=== PATIENT | female | born 1945 | race Caucasian/White ===

== ENCOUNTER → 2019-09-28 12:57 | Outpatient (CLI) | payer MEDICARE, SELFPAY ==
[2019-09-28 15:42] LABS: Free T3, Triiodothyronine Free 2.27 pg/mL (2.77-5.27); Free T4, Direct Thyroxine 1.23 ng/dL (0.78-2.19)
[2019-09-28 15:56] LABS: Thyroid Stimulating Hormone 0.94 uIU/mL (0.47-4.68)
== END ==
PROVIDERS: PCP Nurse Practitioner; Referring Provider Nurse Practitioner; Visit Provider Nurse Practitioner
DX: E03.9 Hypothyroidism, unspecified (principal); F32.9 Major depressive disorder, single episode, unspecified; F41.9 Anxiety disorder, unspecified; L30.9 Dermatitis, unspecified
CPT/HCPCS: 36415; 84439; 84443; 84481

== ENCOUNTER → 2020-05-23 16:11 | Outpatient (CLI) | payer MEDICARE, SELFPAY ==
--- NOTE | 2020-05-23 16:13 | DI.MG.S_ITS ---
BILATERAL DIGITAL SCREENING MAMMOGRAM 3D/2D WITH CAD: 05/23/2020 CLINICAL: Routine screening. Comparison is made to exams dated: 03/31/2018 mammogram, 03/25/2017 mammogram, and 03/20/2016 mammogram - [facility]. The tissue of both breasts is extremely dense, which lowers the sensitivity of mammography. Current study was also evaluated with a Computer Aided Detection (CAD) system. There are benign calcifications in the right breast. No significant masses, calcifications, or other findings are seen in either breast. There has been no significant interval change. IMPRESSION: BENIGN There is no mammographic evidence of malignancy. A 1 year screening mammogram is recommended. This exam was interpreted at Station ID: [id number]. NOTE: For mammograms, a report in lay terms will be sent to the patient. Approximately 15% of breast malignancies will not be visualized mammographically. In the management of a palpable breast mass, a negative mammogram must not discourage biopsy of a clinically suspicious lesion. Electronically Signed By: Avel canseco/milly:05/23/2020 16:45:07 letter sent: Normal Exam ACR BI-RADS Category 2: Benign Finding(s) 3342F
== END ==
PROVIDERS: PCP Nurse Practitioner; Referring Provider Nurse Practitioner; Visit Provider Nurse Practitioner
DX: Z12.31 Encounter for screening mammogram for malignant neoplasm of breast (principal)
CPT/HCPCS: 77063; 77067

== ENCOUNTER → 2020-06-19 09:43 | Outpatient (CLI) | payer MEDICARE, SELFPAY ==
[2020-06-19 11:20] LABS: Alanine Aminotransferase 23 IU/L (<35); Albumin 4.2 g/dL (3.5-5.0); Albumin Globulin Ratio 1.4 (1.0-2.8); Alkaline Phosphatase 51 U/L (38-126); Aspartate Aminotransferase 37 IU/L (14-36); BUN Creatinine Ratio 20.6 (6-22); Bilirubin Total 0.7 mg/dL (0.2-1.3); Blood Urea Nitrogen 13 mg/dL (7-17); Carbon Dioxide 33 mmol/L (22-32); Chloride 101 mmol/L (98-107); Cholesterol 176 mg/dL (140-199); Estimated Glomerular Filt Rate > 60.0 mL/min (>60); Glucose 83 mg/dL (80-110); HDL Cholesterol 60 mg/dL (40-60); HEMOLYSIS < 15 (0-50); LDL Cholesterol Calculated 91 mg/dL (<100); Potassium 3.8 mmol/L (3.4-5.1); Sodium 136 mmol/L (137-145); Total Protein 7.2 g/dL (6.3-8.2); Triglycerides 125 mg/dL (35-150)
[2020-06-19 11:57] LABS: Thyroid Stimulating Hormone 7.53 uIU/mL (0.47-4.68)
== END ==
PROVIDERS: PCP Nurse Practitioner; Referring Provider Nurse Practitioner; Visit Provider Nurse Practitioner
DX: I73.9 Peripheral vascular disease, unspecified (principal); Z13.6 Encounter for screening for cardiovascular disorders
CPT/HCPCS: 36415; 80053; 80061; 84443

== ENCOUNTER → 2020-09-22 07:43 | Outpatient (CLI) | payer MEDICARE, SELFPAY ==
[2020-09-22 09:29] LABS: Thyroid Stimulating Hormone 5.43 uIU/mL (0.47-4.68)
== END ==
PROVIDERS: PCP Nurse Practitioner; Referring Provider Nurse Practitioner; Visit Provider Nurse Practitioner
DX: E03.9 Hypothyroidism, unspecified (principal); Z79.899 Other long term (current) drug therapy
CPT/HCPCS: 36415; 84443

== ENCOUNTER → 2020-10-05 15:09 | Outpatient (CLI) | payer MEDICARE, SELFPAY ==
[2020-10-05] MEDS: COVID-19 VACC, Ad26(JANSSEN)/PF 0.5 ML IM (15:40)
== END ==
PROVIDERS: PCP Nurse Practitioner; Visit Provider Internal Medicine
DX: Z23 Encounter for immunization (principal)
CPT/HCPCS: 0031A; 91303

== ENCOUNTER → 2020-10-16 10:07 | Outpatient (CLI) | payer MEDICARE, SELFPAY ==
[2020-10-16 12:39] LABS: Thyroid Stimulating Hormone 4.61 uIU/mL (0.47-4.68)
== END ==
PROVIDERS: PCP Nurse Practitioner; Referring Provider Nurse Practitioner; Visit Provider Nurse Practitioner
DX: E03.9 Hypothyroidism, unspecified (principal); R79.89 Other specified abnormal findings of blood chemistry; Z79.899 Other long term (current) drug therapy
CPT/HCPCS: 36415; 84443

== ENCOUNTER → 2020-12-22 09:08 | Outpatient (CLI) | payer MEDICARE, SELFPAY ==
[2020-12-22 10:14] LABS: Thyroid Stimulating Hormone 0.313 uIU/mL (0.47-4.68)
== END ==
PROVIDERS: PCP Nurse Practitioner; Referring Provider Nurse Practitioner; Visit Provider Nurse Practitioner
DX: E03.9 Hypothyroidism, unspecified (principal); Z79.899 Other long term (current) drug therapy
CPT/HCPCS: 36415; 84443

== ENCOUNTER → 2021-03-27 11:32 | Outpatient (CLI) | payer MEDICARE, SELFPAY ==
[2021-03-27 12:03] LABS: COVID19 -Nasal RAPID Negative (Negative)
[2021-03-27 14:18] LABS: Thyroid Stimulating Hormone 3.26 uIU/mL (0.47-4.68)
== END ==
PROVIDERS: PCP Nurse Practitioner; Referring Provider Nurse Practitioner; Visit Provider Nurse Practitioner
DX: Z20.822 Contact with and (suspected) exposure to COVID-19 (principal); E03.9 Hypothyroidism, unspecified; J02.9 Acute pharyngitis, unspecified; G47.00 Insomnia, unspecified; Z79.899 Other long term (current) drug therapy
CPT/HCPCS: 36415; 84443; 87635

== ENCOUNTER → 2021-05-26 09:49 | Outpatient (CLI) | payer MEDICARE, SELFPAY ==
--- NOTE | 2021-05-26 09:51 | DI.MG.S_ITS ---
BILATERAL DIGITAL SCREENING MAMMOGRAM 3D/2D WITH CAD: 05/26/2021 CLINICAL: Routine screening. Comparison is made to exams dated: 05/23/2020 mammogram - [facility], 03/31/2018 mammogram, and 03/25/2017 mammogram - [facility]. The tissue of both breasts is extremely dense, which lowers the sensitivity of mammography. Current study was also evaluated with a Computer Aided Detection (CAD) system. There are benign calcifications in the right breast. No significant masses, calcifications, or other findings are seen in either breast. There has been no significant interval change. IMPRESSION: BENIGN There is no mammographic evidence of malignancy. A 1 year screening mammogram is recommended. This exam was interpreted at Station ID: [id number]. NOTE: For mammograms, a report in lay terms will be sent to the patient. Approximately 15% of breast malignancies will not be visualized mammographically. In the management of a palpable breast mass, a negative mammogram must not discourage biopsy of a clinically suspicious lesion. Electronically Signed By: Avel canseco/milly:05/28/2021 09:01:58 letter sent: Normal Exam ACR BI-RADS Category 2: Benign Finding(s) 3342F
== END ==
PROVIDERS: PCP Nurse Practitioner; Referring Provider Nurse Practitioner; Visit Provider Nurse Practitioner
DX: Z12.31 Encounter for screening mammogram for malignant neoplasm of breast (principal)
CPT/HCPCS: 77063; 77067

== ENCOUNTER → 2021-06-08 10:43 | Outpatient (CLI) | payer MEDICARE, SELFPAY ==
[2021-06-08] MEDS: COVID-19 VACC #3, MRNA(MOD) 50 MCG/0.25 ML VIAL IM (10:47)
== END ==
PROVIDERS: PCP Nurse Practitioner; Visit Provider Internal Medicine
DX: Z23 Encounter for immunization (principal)
CPT/HCPCS: 0013A; 91301

== ENCOUNTER → 2021-10-20 08:15 | Outpatient (CLI) | payer MEDICARE, SELFPAY ==
--- NOTE | 2021-10-20 08:23 | DI.RAD.S_ITS ---
PROCEDURE: XR LUMBAR SPINE 2-3V INDICATIONS: Right lower back pain TECHNIQUE: 3 views of the lumbar spine were acquired. COMPARISON: None. FINDINGS: Bones: Moderate levoconvex lumbar scoliosis is seen. Minimal retrolisthesis is seen at L1-L2 and L2-L3, with minimal anterolisthesis at L5-S1. 5 nonrib-bearing, lumbar type vertebral bodies are seen. No displaced fractures are seen. No suspicious lytic or blastic lesions are seen. There is moderate to severe disc space narrowing seen throughout the lumbar spine. Lower lumbar spine facet arthropathy is seen. Soft tissues: Overlying bowel gas pattern is normal. No suspicious soft tissue calcifications. IMPRESSION: Moderate levoconvex lumbar scoliosis with multiple levels of relatively prominent degenerative change. Dictated by: Bhupinder Coronel M.D. on 10/20/2021 at 9:09 Approved by: Bhupinder Coronel M.D. on 10/20/2021 at 9:11
[2021-10-20 08:50] LABS: Add Manual Diff / Slide Review NO; Basophils Absolute Auto 100 /uL (0-100); Basophils Percent Auto 1.1 % (0-2); Eosinophils Absolute Auto 100 /uL (0-450); Eosinophils Percent Auto 1.6 % (2-4); Hemoglobin 14.4 g/dL (12.0-16.0); Lymphocytes Absolute Auto 1700 /uL (1100-4500); Lymphocytes Percent Auto 20.8 % (25-40); Mean Corpuscular HGB Conc 33.6 % (30-36); Mean Corpuscular Hemoglobin 29.1 PG (26-34); Mean Corpuscular Volume 86.7 fL (80-100); Monocytes Absolute Auto 600 /uL (0-900); Monocytes Percent Auto 7.4 % (3-14); Neutrophils Absolute Auto 5600 /uL (1500-7000); Neutrophils Percent Auto 69.1 % (50-75); Platelet Count 236 X10^3/uL (150-400); Red Blood Cell Count 4.96 X10^6/uL (4.0-5.2); Red Cell Distribution Width 14.6 % (11.6-14.8); White Blood Cell Count 8.1 X10^3/uL (4.5-11.0)
[2021-10-20 09:05] LABS: Alanine Aminotransferase 25 IU/L (<35); Albumin 4.5 g/dL (3.5-5.0); Albumin Globulin Ratio 1.7 (1.0-2.8); Alkaline Phosphatase 50 U/L (38-126); Aspartate Aminotransferase 39 IU/L (14-36); BUN Creatinine Ratio 24.3 (6-22); Bilirubin Total 0.9 mg/dL (0.2-1.3); Blood Urea Nitrogen 18 mg/dL (7-17); Calcium 9.4 mg/dL (8.4-10.2); Carbon Dioxide 30 mmol/L (22-32); Chloride 101 mmol/L (98-107); Estimated Glomerular Filt Rate > 60.0 mL/min (>60); Globulin 2.7 g/dL (1.7-4.1); Glucose 96 mg/dL (80-110); HEMOLYSIS < 15 (0-50); Potassium 4.2 mmol/L (3.4-5.1); Sodium 137 mmol/L (137-145); Total Protein 7.2 g/dL (6.3-8.2)
[2021-10-20 09:33] LABS: Thyroid Stimulating Hormone 1.88 uIU/mL (0.47-4.68)
== END ==
PROVIDERS: PCP Nurse Practitioner; Referring Provider Nurse Practitioner; Visit Provider Nurse Practitioner
DX: F33.41 Major depressive disorder, recurrent, in partial remission (principal); F41.9 Anxiety disorder, unspecified; G47.00 Insomnia, unspecified; K21.9 Gastro-esophageal reflux disease without esophagitis; K29.70 Gastritis, unspecified, without bleeding; Z79.899 Other long term (current) drug therapy
CPT/HCPCS: 36415; 72100; 80053; 84443; 85025

== ENCOUNTER → 2022-01-29 07:43 | Outpatient (CLI) | payer MEDICARE, SELFPAY ==
--- NOTE | 2022-01-29 07:44 | DI.US.S_ITS ---
PROCEDURE: US ABDOMEN COMPLETE INDICATIONS: LEFT LOWER QUADRANT MASS TECHNIQUE: Real-time scanning was performed of the abdominal and retroperitoneal organs, with image documentation. COMPARISON: None. FINDINGS: Liver: Liver is normal in size and homogeneous in echotexture. Gallbladder: The gallbladder wall measures 1 mm in diameter. No stones, sludge, pericholecystic fluid, or sonographic Zamora sign. Biliary ducts: Intrahepatic bile ducts are non-dilated. Extrahepatic bile duct caliber measures 1.8 mm. Normal is 6-7 mm or less in diameter, or 10 mm or less post-cholecystectomy. Pancreas: Visualized portions of the pancreas are sonographically normal. Spleen: Spleen is normal in size and homogeneous in echotexture. Kidneys: Kidneys are normal in size and echotexture. Right kidney measures 10.7 cm long; left kidney measures 10.5 cm long. No hydronephrosis or nephrolithiasis. No solid masses. Aorta: Visualized aorta is normal in caliber at less than 3 cm. Iliacs: Proximal common iliac arteries are normal in caliber at less than 2.5 cm. IVC: Intrahepatic inferior vena cava is patent. Miscellaneous: No free abdominal fluid. The left lower quadrant was interrogated in the area of interest palpated by the patient. No sonographic abnormalities are visualized. IMPRESSION: 1. No cholelithiasis or findings to suggest choledocholithiasis or acute cholecystitis. 2. No sonographic abnormality in the region palpated by the patient in the left lower quadrant. Dictated by: Lottie Russ M.D. on 01/29/2022 at 9:46 Approved by: Lottie Russ M.D. on 01/29/2022 at 9:48
== END ==
PROVIDERS: PCP Nurse Practitioner; Referring Provider Student in an Organized Health Care Education/Training Program; Visit Provider Student in an Organized Health Care Education/Training Program
DX: R19.04 Left lower quadrant abdominal swelling, mass and lump (principal)
CPT/HCPCS: 76700

== ENCOUNTER → 2022-05-14 17:11 | Outpatient (CLI) | payer MEDICARE, SELFPAY ==
[2022-05-14 18:10] LABS: Add Manual Diff / Slide Review NO; Basophils Absolute Auto 0 /uL (0-100); Basophils Percent Auto 0.4 % (0-2); Eosinophils Absolute Auto 100 /uL (0-450); Eosinophils Percent Auto 1.3 % (2-4); Hematocrit 41.3 % (36-46); Hemoglobin 13.7 g/dL (12.0-16.0); Lymphocytes Absolute Auto 1200 /uL (1100-4500); Lymphocytes Percent Auto 13.3 % (25-40); Mean Corpuscular HGB Conc 33.2 % (30-36); Mean Corpuscular Hemoglobin 30.2 PG (26-34); Monocytes Absolute Auto 600 /uL (0-900); Monocytes Percent Auto 7.1 % (3-14); Neutrophils Absolute Auto 7100 /uL (1500-7000); Neutrophils Percent Auto 77.9 % (50-75); Platelet Count 233 X10^3/uL (150-400); Red Blood Cell Count 4.54 X10^6/uL (4.0-5.2); Red Cell Distribution Width 14.7 % (11.6-14.8); White Blood Cell Count 9.1 X10^3/uL (4.5-11.0)
[2022-05-14 18:27] LABS: Alanine Aminotransferase 24 IU/L (<35); Albumin 4.4 g/dL (3.5-5.0); Albumin Globulin Ratio 1.5 (1.0-2.8); Alkaline Phosphatase 66 U/L (38-126); Aspartate Aminotransferase 34 IU/L (14-36); BUN Creatinine Ratio 28.4 (6-22); Bilirubin Total 0.4 mg/dL (0.2-1.3); Blood Urea Nitrogen 19 mg/dL (7-17); Carbon Dioxide 28 mmol/L (22-32); Chloride 100 mmol/L (98-107); Estimated Glomerular Filt Rate > 60 mL/min (>60); Glucose 87 mg/dL (80-110); HEMOLYSIS 15 (0-50); Potassium 3.8 mmol/L (3.4-5.1); Sodium 137 mmol/L (137-145); Total Protein 7.4 g/dL (6.3-8.2)
[2022-05-14 19:29] LABS: Free T3, Triiodothyronine Free 2.88 pg/mL (2.77-5.27); Free T4, Direct Thyroxine 1.64 ng/dL (0.78-2.19)
[2022-05-14 19:42] LABS: Thyroid Stimulating Hormone 0.046 uIU/mL (0.47-4.68)
== END ==
PROVIDERS: PCP Nurse Practitioner; Referring Provider Nurse Practitioner; Visit Provider Nurse Practitioner
DX: R63.4 Abnormal weight loss (principal)
CPT/HCPCS: 36415; 80053; 84439; 84443; 84481; 85025

== ENCOUNTER → 2022-06-01 10:29 | Outpatient (CLI) | payer MEDICARE, SELFPAY ==
--- NOTE | 2022-06-01 10:31 | DI.MG.S_ITS ---
BILATERAL DIGITAL SCREENING MAMMOGRAM 3D/2D WITH CAD: 06/01/2022 CLINICAL: Routine screening. Comparison is made to exams dated: 05/26/2021 mammogram, 05/23/2020 mammogram - [facility], 03/31/2018 mammogram, and 03/25/2017 mammogram - [facility]. Both breasts are extremely dense, which lowers the sensitivity of mammography (category d />75% glandular tissue). Current study was also evaluated with a Computer Aided Detection (CAD) system. There are benign calcifications in the right breast. No significant masses, calcifications, or other findings are seen in either breast. There has been no significant interval change. IMPRESSION: BENIGN There is no mammographic evidence of malignancy. A 1 year screening mammogram is recommended. Based on the Tyrer Cuzick model (a risk assessment model) the patient's lifetime risk is 6.3% and her 10 year risk is 0.0%. According to the ACR, ACS, and NCCN guidelines, an annual breast MRI exam along with mammogram is recommended if the patient's lifetime risk is 20% or greater. This exam was interpreted at Station ID: [id number]. NOTE: For mammograms, a report in lay terms will be sent to the patient. Approximately 15% of breast malignancies will not be visualized mammographically. In the management of a palpable breast mass, a negative mammogram must not discourage biopsy of a clinically suspicious lesion. Electronically Signed By: Spike pierre/milly:06/03/2022 11:57:25 letter sent: Normal Exam ACR BI-RADS Category 2: Benign Finding(s) 3342F
== END ==
PROVIDERS: PCP Nurse Practitioner; Referring Provider Nurse Practitioner; Visit Provider Nurse Practitioner
DX: Z12.31 Encounter for screening mammogram for malignant neoplasm of breast (principal)
CPT/HCPCS: 77063; 77067

== ENCOUNTER → 2022-09-24 09:54 | Outpatient (CLI) | payer MEDICARE, SELFPAY | PROVIDERS: PCP Nurse Practitioner; Referring Provider Nurse Practitioner; Visit Provider Nurse Practitioner | DX: E03.9 Hypothyroidism, unspecified (principal) | CPT/HCPCS: 36415; 84443 ==

== ENCOUNTER → 2023-01-06 11:44 | Outpatient (CLI) | payer MEDICARE, SELFPAY ==
[2023-01-06 13:24] LABS: Alanine Aminotransferase 25 IU/L (<35); Albumin 4.1 g/dL (3.5-5.0); Albumin Globulin Ratio 1.6 (1.0-2.8); Alkaline Phosphatase 54 U/L (38-126); Aspartate Aminotransferase 27 IU/L (14-36); BUN Creatinine Ratio 25.4 (6-22); Bilirubin Total 0.2 mg/dL (0.2-1.3); Blood Urea Nitrogen 16 mg/dL (7-17); Calcium 9.1 mg/dL (8.4-10.2); Carbon Dioxide 30 mmol/L (22-32); Chloride 101 mmol/L (98-107); Estimated Glomerular Filt Rate > 60 mL/min (>60); Globulin 2.5 g/dL (1.7-4.1); Glucose 88 mg/dL (80-110); HEMOLYSIS < 15 (0-50); Potassium 4.1 mmol/L (3.4-5.1); Sodium 136 mmol/L (137-145); Total Protein 6.6 g/dL (6.3-8.2)
[2023-01-06 13:50] LABS: Thyroid Stimulating Hormone 3.47 uIU/mL (0.47-4.68)
== END ==
PROVIDERS: PCP Nurse Practitioner; Referring Provider Nurse Practitioner; Visit Provider Nurse Practitioner
DX: E03.9 Hypothyroidism, unspecified (principal); R79.89 Other specified abnormal findings of blood chemistry; Z86.19 Personal history of other infectious and parasitic diseases
CPT/HCPCS: 36415; 80053; 84443

== ENCOUNTER 2023-04-16 11:21 | Emergency (ER) | payer MEDICARE, SELFPAY ==
[2023-04-16 11:25] VITALS: BP 125/95; PULSE 76; RESP 16; TEMP 36.6; O2SAT 97
--- NOTE | 2023-04-16 11:34 | DI.RAD.S_ITS ---
PROCEDURE: XR HIP W PEL IF DONE LT 2V INDICATIONS: fall 10 days ago, still having pain TECHNIQUE: AP pelvis with lateral view(s) of the left hip(s). COMPARISON: None. FINDINGS: Bones: There are minimally displaced superior ramal fracture and nondisplaced inferior pubic ramal fracture. The left hip appears intact. 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 No suspicious bony lesions. Soft tissues: The visualized bowel gas pattern is normal. No suspicious soft tissue calcifications. IMPRESSION: Left superior and inferior pubic ramal fractures. Dictated by: Carla Narvaez M.D. on 04/16/2023 at 11:59 Approved by: Carla Narvaez M.D. on 04/16/2023 at 12:01
--- NOTE | 2023-04-16 12:11 | ED.LOWEXIN ---
HPI - Extremity Injury (Lower) General Chief Complaint: Extremity Injury, Lower Stated Complaint: fell T-10 LT side and back hurting Time Seen by Provider: 04/16/23 12:11 Source: patient Mode of arrival: Ambulatory History of Present Illness HPI Narrative: 78-year-old female who is here for evaluation of left-sided hip and lower back and pain radiating down her left leg. This occurred after she fell approximately 10 days ago. Because her pain has continued she came into the emergency department. She has been using a walker and also a cane which she normally does not do. She reports no other injuries from the event. Related Data Home Medications Medication Instructions Recorded Confirmed ibuprofen 200 mg tablet 200 mg PO Q6H PRN 09/28/19 12/30/22 cholecalciferol (vitamin D3) 50 50 mcg PO BID 07/04/20 12/30/22 mcg (2,000 unit) capsule (Vitamin D3) terbinafine HCl 250 mg tablet 250 mg PO DAILY 04/09/23 04/09/23 Previous Rx's Medication Instructions Recorded alendronate 70 mg tablet 70 mg PO QWEEK #12 tabs 05/14/22 omeprazole 20 mg capsule,delayed See Rx Instructions .Route 07/24/22 release .COMPLEX #90 caps levothyroxine 100 mcg tablet See Rx Instructions .Route 11/25/22 .COMPLEX #90 tabs clobetasol 0.05 % topical ointment 1 applic topical BID PRN 04/09/23 itching/rash 1 week #30 grams venlafaxine 75 mg capsule,extended 75 mg PO BEDTIME #30 caps 04/09/23 release 24 hr Allergies Allergy/AdvReac Type Severity Reaction Status Date / Time cephalexin [From Keflex] Allergy Mild rash Verified 04/09/23 09:32 Review of Systems Constitutional Constitutional: Reports system reviewed and no additional complaints, except as documented Musculoskeletal Musculoskeletal: Reports system reviewed and no additional complaints, except as documented Neurologic Neurologic: Reports system reviewed and no additional complaints, except as documented Patient History Medical History ADHD Arthritis Carpal tunnel syndrome Chicken pox Constipation Eczema Environmental allergies Fibroids Gastroesophageal reflux disease History of alendronate therapy Hypothyroidism (~1999) Insomnia Measles Mumps Onychomycosis Osteoporosis Peripheral vascular disease Surgical History History of cataract removal with insertion of prosthetic lens (~2018) History of right breast biopsy Family History Father Cancer Mother History of heart disease Social History Smoking Status: Former smoker Smoking Status: Former smoker alcohol intake frequency: a few times a week Substance Use Type: marijuana Exam Initial Vital Signs Initial Vital Signs: Vital Signs Temperature 98 F 04/16/23 11:25 Pulse Rate 76 04/16/23 11:25 Respiratory Rate 16 04/16/23 11:25 Blood Pressure 125/95 H 04/16/23 11:25 Pulse Oximetry 97 04/16/23 11:25 Oxygen Delivery Method Room Air 04/16/23 11:25 HENMT Head: normal to inspection and normocephalic Neuro General: patient alert and patient awake Extrem Other: No gross deformities. Pain with walking. Discomfort to the lateral aspect of the upper hip Course Orders Ordered: ED Orders 04/16/23 11:34 XR hip w pel if done LT 2V Stat Vital Signs Vital signs: Vital Signs - 8 hr 04/16/23 11:25 Temperature 98 F Pulse Rate 76 Respiratory Rate 16 Blood Pressure 125/95 H Pulse Oximetry 97 Oxygen Delivery Method Room Air [facility] - Extremity Injury (Lower) Imaging Data Extremity x-ray #1: Radiologist's Impression: PROCEDURE:? XR HIP W PEL IF DONE LT 2V ? INDICATIONS:? fall 10 days ago, still having pain ? TECHNIQUE:? AP pelvis with lateral view(s) of the left hip(s).? ? COMPARISON:? None. ? FINDINGS:? ? Bones:? There are minimally displaced superior ramal fracture and nondisplaced inferior pubic ramal fracture.? The left hip appears intact.? 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 No suspicious bony lesions.? ? Soft tissues:? The visualized bowel gas pattern is normal.? No suspicious soft tissue calcifications.? ? ? IMPRESSION:? Left superior and inferior pubic ramal fractures. [facility] Narrative Medical decision making narrative: This was a mechanical fall. X-ray do show a left superior and inferior pubic rami fracture. The event occurred approximately 10 days ago. Other injuries from the event. She is ambulatory with a walker and a cane. Will discharge patient home with return precautions. She expressed understanding and agreement. Discharge Plan Departure Patient Disposition: Home Clinical Impression: Fracture of superior ramus of left pubis, Fracture of left inferior pubic ramus Activity Restrictions/Additional Instructions: You can use the walker and the cane as needed. You can continue to take Tylenol and ibuprofen as needed as well. You can walk on your left leg as tolerated. Return to the emergency department for new symptoms. Prescriptions: No Action omeprazole 20 mg capsule,delayed release(DR/EC) See Rx Instructions .ROUTE .COMPLEX Qty: 90 3RF Dose Instruction: TAKE 1 CAPSULE BY MOUTH DAILY FOR GERD Rx Instructions: TAKE 1 CAPSULE BY MOUTH DAILY FOR GERD levothyroxine 100 mcg tablet See Rx Instructions .ROUTE .COMPLEX Qty: 90 3RF Dose Instruction: TAKE 1 TABLET BY MOUTH DAILY LABS DUE PRIOR TO NEXT REFILL Rx Instructions: TAKE 1 TABLET BY MOUTH DAILY LABS DUE PRIOR TO NEXT REFILL cholecalciferol (vitamin D3) [Vitamin D3] 50 mcg (2,000 unit) capsule 50 mcg PO BID Rx Instructions: Take twice daily with Calcium 600mg for bone heatlh alendronate 70 mg tablet 70 mg PO QWEEK Qty: 12 3RF Rx Instructions: Take 1 tab weekly, on an empty stomach, walk x30 mins after taking ibuprofen 200 mg tablet 200 mg PO Q6H PRN venlafaxine 75 mg capsule,extended release 24hr 75 mg PO BEDTIME Qty: 30 0RF clobetasol 0.05 % ointment 1 applic TOP BID PRN (Reason: itching/rash) 7 Days Qty: 30 3RF Rx Instructions: Apply twice daily to affected areas as needed terbinafine HCl 250 mg tablet 250 mg PO DAILY Referrals: Mercedes Castaneda ARNP [Primary Care Provider] - Stand Alone Forms: Patient Portal/API
== END 2023-04-16 12:24 | disposition home or self-care (01) ==
PROVIDERS: Emergency Provider Emergency Medicine; PCP Nurse Practitioner
DX: S32.512A Fracture of superior rim of left pubis, initial encounter for closed fracture (principal); S32.592A Other specified fracture of left pubis, initial encounter for closed fracture; W19.XXXA Unspecified fall, initial encounter
CPT/HCPCS: 73502; 99283

== ENCOUNTER 2023-04-18 14:02 | Emergency (ER) | payer MEDICARE, SELFPAY ==
[2023-04-18 14:19] VITALS: BP 115/62; PULSE 86; RESP 18; TEMP 36.4; O2SAT 98; BMI 16.8
--- NOTE | 2023-04-18 14:25 | DI.RAD.S_ITS ---
PROCEDURE: XR ANKLE LT MIN 3V INDICATIONS: Recent fall, ambulatory TECHNIQUE: 3 views of the ankle were acquired. COMPARISON: None. FINDINGS: Bones: No fractures or dislocations. Ankle mortise is normally aligned. No suspicious bony lesions. Soft tissues: No tibiotalar joint effusion. Achilles tendon appears normal. IMPRESSION: No evidence acute bony abnormality. If clinical suspicion and/or symptoms persist, further assessment with repeat plain films, or advanced imaging (e.g., CT, MRI, or bone scan) may be helpful for further assessment. Dictated by: Tim Guerrero M.D. on 04/18/2023 at 16:03 Approved by: Tim Guerrero M.D. on 04/18/2023 at 16:03
--- NOTE | 2023-04-18 15:33 | ED_ITS ---
HPI - Recheck/Abnormal Lab/Rx <Sue Guajardo PA-C - Last Filed: 04/18/23 18:46> General Chief Complaint: Recheck/Abnormal Lab/Rx Stated Complaint: fell/both ankles inj Time Seen by Provider: 04/18/23 15:24 Source: patient Mode of arrival: Ambulatory History of Present Illness HPI narrative: Patient is a 78-year-old female with chronic conditions of ADHD, osteoarthritis, GERD, peripheral vascular disease presenting after fall 12 days ago for evaluation of left ankle discomfort for 10-12 days, lower back and right buttocks pain for the last day. She was seen in the emergency department 2 days ago and diagnosed with left-sided pelvic rami fractures. She states that her lower back pain has occurred after several days of increased sitting. She denies any back pain or buttock pain right after the incident. She notes that last night she had deep right buttocks pain which occurred but resolved on its own. She denies any weakness or radiation of pain down her right leg. She also notes some lower back discomfort which seems to worsen with sitting. She wants to make sure that her left ankle is okay as she is noticed that this has been somewhat tender on the lower lateral side since her fall 12 days ago. She received x-rays at her visit in the emergency department 2 days ago. She reports that she is been using a walker and/or a cane since the incident. Her she says that she is having some difficulty walking and sitting due to pain. She also notes pain when lying down which radiates into her left groin. She says that she did not hit her head but she did hit her left elbow and her neck. She states the fall occurred when she was walking carrying a box up 3 flight of stairs. She states she caught her left foot and fell. She reports that she came in for recheck today because she noticed an incident of right buttock pain yesterday which resolved on its own and she wanted to have her left ankle checked out as well since it has been bothering her. She states she is not in pain at this time. She also noted some lower back pain which is also not present at this time. She denies any numbness in her lower leg nor any weakness but she does have continued pain in her left hip. She does report some incontinence of urine and stool. She states that this is because she can not make it to the bathroom quickly enough, not because she can not feel it was unaware that it was happening. She reports that after sitting for time in the emergency department, she feels her lower back and buttocks pain. She denies any numbness or weakness of either leg. Related Data Home Medications Medication Instructions Recorded Confirmed ibuprofen 200 mg tablet 200 mg PO Q6H PRN 09/28/19 12/30/22 cholecalciferol (vitamin D3) 50 50 mcg PO BID 07/04/20 12/30/22 mcg (2,000 unit) capsule (Vitamin D3) terbinafine HCl 250 mg tablet 250 mg PO DAILY 04/09/23 04/09/23 Previous Rx's Medication Instructions Recorded alendronate 70 mg tablet 70 mg PO QWEEK #12 tabs 05/14/22 omeprazole 20 mg capsule,delayed See Rx Instructions .Route 07/24/22 release .COMPLEX #90 caps levothyroxine 100 mcg tablet See Rx Instructions .Route 11/25/22 .COMPLEX #90 tabs clobetasol 0.05 % topical ointment 1 applic topical BID PRN 04/09/23 itching/rash 1 week #30 grams venlafaxine 75 mg capsule,extended 75 mg PO BEDTIME #30 caps 04/09/23 release 24 hr Allergies Allergy/AdvReac Type Severity Reaction Status Date / Time cephalexin [From Keflex] Allergy Mild rash Verified 04/18/23 14:19 Review of Systems <Sue Guajardo PA-C - Last Filed: 04/18/23 18:46> Review of Systems Narrative: See HPI Patient History <Sue Guajardo PA-C - Last Filed: 04/18/23 18:46> Medical History ADHD Arthritis Carpal tunnel syndrome Chicken pox Constipation Eczema Environmental allergies Fibroids Gastroesophageal reflux disease History of alendronate therapy Hypothyroidism (~1999) Insomnia Measles Mumps Onychomycosis Osteoporosis Peripheral vascular disease Surgical History History of cataract removal with insertion of prosthetic lens (~2017) History of right breast biopsy Family History Father Cancer Mother History of heart disease Social History Smoking Status: Former smoker Smoking Status: Former smoker alcohol intake frequency: a few times a week Substance Use Type: marijuana Exam <Sue Guajardo PA-C - Last Filed: 04/18/23 18:46> Initial Vital Signs Initial Vital Signs: Vital Signs Temperature 97.6 F 04/18/23 14:19 Pulse Rate 86 04/18/23 14:19 Respiratory Rate 18 04/18/23 14:19 Blood Pressure 115/62 04/18/23 14:19 Pulse Oximetry 98 04/18/23 14:19 Oxygen Delivery Method Room Air 04/18/23 14:19 GENERAL: 78 year old patient appears stated age. Well-developed patient, in no acute distress. HEAD: Atraumatic. Normocephalic. EYES: Pupils equal round and reactive. No scleral icterus. No injection or drainage. NECK: Trachea midline. Non tender. No midline cervical tenderness. CARDIOVASCULAR: Regular rate and rhythm without murmurs, gallops, or rubs. RESPIRATORY: Clear to auscultation. Breath sounds equal bilaterally. No wheezes, rales, or rhonchi. EXTREMITIES: No edema or joint tenderness. Knee flexion extension 5/5 bilaterally, foot dorsiflexion and plantar flexion strength 5/5 bilaterally, patient inverts and everts left ankle with no issue, there was no swelling or erythema noted over left ankle. No pain on palpation of high tibia. Posterior tibialis pulse 2 +in left ankle, no tenderness to palpation over right buttocks BACK: No deformity or crepitance over cervical, thoracic, lumbar, sacral spine palpated, nontender to palpation NEURO: AOx3. SKIN: No rash or erythema of visible areas <Addison Moran DO - Last Filed: 04/19/23 06:52> Initial Vital Signs Initial Vital Signs: Vital Signs Temperature 97.6 F 04/18/23 14:19 Pulse Rate 86 04/18/23 14:19 Respiratory Rate 18 04/18/23 14:19 Blood Pressure 115/62 04/18/23 14:19 Pulse Oximetry 98 04/18/23 14:19 Oxygen Delivery Method Room Air 04/18/23 14:19 Course <Sue Guajardo PA-C - Last Filed: 04/18/23 18:46> Orders Ordered: ED Orders 04/18/23 14:25 XR ankle LT min 3V Stat Vital Signs Vital signs: Vital Signs - 8 hr 04/18/23 14:19 04/18/23 17:16 Temperature 97.6 F Pulse Rate 86 77 Respiratory Rate 18 16 Blood Pressure 115/62 110/57 L Pulse Oximetry 98 100 Oxygen Delivery Method Room Air Room Air <Addison Moran DO - Last Filed: 04/19/23 06:52> Orders Ordered: ED Orders 04/18/23 14:25 XR ankle LT min 3V Stat Vital Signs Vital signs: Vital Signs - 8 hr 04/18/23 14:19 04/18/23 17:16 Temperature 97.6 F Pulse Rate 86 77 Respiratory Rate 18 16 Blood Pressure 115/62 110/57 L Pulse Oximetry 98 100 Oxygen Delivery Method Room Air Room Air MDM - Recheck/Abnormal Lab/Rx <Sue Guajardo PA-C - Last Filed: 04/18/23 18:46> Imaging Data Ankle x-ray: Radiologist's Impression: PROCEDURE:? XR ANKLE LT MIN 3V ? INDICATIONS:? Recent fall, ambulatory ? TECHNIQUE:? 3 views of the ankle were acquired.? ? COMPARISON:? None. ? FINDINGS:? ? Bones:? No fractures or dislocations.? Ankle mortise is normally aligned.? No suspicious bony lesions.? ? Soft tissues:? No tibiotalar joint effusion.? Achilles tendon appears normal.? ? ? IMPRESSION:? No evidence acute bony abnormality. ? If clinical suspicion and/or symptoms persist, further assessment with repeat plain films, or advanced imaging (e.g., CT, MRI, or bone scan) may be helpful for further assessment. ? Dictated by: Tim uGerrero M.D. on 04/18/2023 at 16:03 ? ? Approved by: Tim Guerrero M.D. on 04/18/2023 at 16:03 ? [facility] Narrative Medical decision making narrative: Patient is a 78-year-old female presenting for evaluation of onset of right buttock pain yesterday and lower back pain which have resolved as well as ongoing left ankle pain.. She was seen in the emergency department 2 days ago and diagnosed with 2 left-sided pelvic ramus fractures. She reports that she wanted to be rechecked to make sure ankle was okay and to discuss her right buttock and lower back pain. Multiple etiologies for patient's symptoms considered including, but not limited to: Complication of fracture, muscle strain, clot, spinal abscess, epidural hematoma Prior Charts reviewed: ER visit 04/16/2023 Labs reviewed and interpreted by myself: Imaging reviewed: Left ankle showed no fracture dislocation. Consultations: Discussed case with Dr. Moran since patient is returning after being seen 2 days ago. Since her pain in her right buttocks and lower back resolved on its own, she should be okay to continue to monitor her symptoms. Discussed possibility of further imaging. Discussed this with patient and she defers further imaging at this time and would prefer to monitor for red flag symptoms. Also discussed with patient that x-ray of right ankle did not show any fracture or dislocation. I recommend she wrap it with an Ozzy wrap and continue follow up with primary care provider. Red flag symptoms for follow up include intense pain in her right buttock which does not improve, worsening pain in her lower back which does not improve on its own, weakness in either leg or incontinence of stool or urine unrelated to difficulty with mobility as well as other concerning signs and symptoms. She is agreeable with this plan of care and will make follow up with PCP. Patient's symptoms improved over duration of stay with above-stated therapies. Findings and discharge diagnosis discussed with patient/family followed by verbalization of understanding Return precautions discussed with patient/family whom verbalize understanding of diagnosis and plan Discharge Plan Departure Patient Disposition: Home Clinical Impression: Muscle strain of gluteal region Activity Restrictions/Additional Instructions: Review of ankle x-ray does not show any fracture or dislocation. We discussed that since the pain in your lower back and right buttocks just occurred and has currently resolved when you came in today, it is likely related to a muscle strain. I recommend continued treatment with Tylenol and ibuprofen as well as heat packs and activity as tolerated. We discussed the option of additional imaging, but we have discussed that you feel comfortable watching instead. We discussed symptoms to return for further evaluation include fever, pain in right buttocks or lower back that worsens and does not improve on its own, numbness or weakness, incontinence of stool or urine that is not due to difficulty with mobility or other concerning symptoms. Thank you for coming in today for your care. I recommend you follow up with your primary care provider for continued monitoring of healing of your pubic ramal fractures. Prescriptions: No Action omeprazole 20 mg capsule,delayed release(DR/EC) See Rx Instructions .ROUTE .COMPLEX Qty: 90 3RF Dose Instruction: TAKE 1 CAPSULE BY MOUTH DAILY FOR GERD Rx Instructions: TAKE 1 CAPSULE BY MOUTH DAILY FOR GERD levothyroxine 100 mcg tablet See Rx Instructions .ROUTE .COMPLEX Qty: 90 3RF Dose Instruction: TAKE 1 TABLET BY MOUTH DAILY LABS DUE PRIOR TO NEXT REFILL Rx Instructions: TAKE 1 TABLET BY MOUTH DAILY LABS DUE PRIOR TO NEXT REFILL cholecalciferol (vitamin D3) [Vitamin D3] 50 mcg (2,000 unit) capsule 50 mcg PO BID Rx Instructions: Take twice daily with Calcium 600mg for bone heatlh alendronate 70 mg tablet 70 mg PO QWEEK Qty: 12 3RF Rx Instructions: Take 1 tab weekly, on an empty stomach, walk x30 mins after taking ibuprofen 200 mg tablet 200 mg PO Q6H PRN venlafaxine 75 mg capsule,extended release 24hr 75 mg PO BEDTIME Qty: 30 0RF clobetasol 0.05 % ointment 1 applic TOP BID PRN (Reason: itching/rash) 7 Days Qty: 30 3RF Rx Instructions: Apply twice daily to affected areas as needed terbinafine HCl 250 mg tablet 250 mg PO DAILY Referrals: Mercedes Castaneda ARNP [Primary Care Provider] - Stand Alone Forms: Patient Portal/API <Addison Moran DO - Last Filed: 04/19/23 06:52> Cosign ED Attending Susan Attestation: I was immediately available in the department for consultation. Documentation goncalves s been reviewed. I agree with assessment and plan.
[2023-04-18 17:16] VITALS: BP 110/57; PULSE 77; RESP 16; O2SAT 100
== END 2023-04-18 17:21 | disposition home or self-care (01) ==
PROVIDERS: Emergency Provider Physician Assistant; PCP Nurse Practitioner
DX: M25.572 Pain in left ankle and joints of left foot (principal); S39.012A Strain of muscle, fascia and tendon of lower back, initial encounter; X58.XXXA Exposure to other specified factors, initial encounter
CPT/HCPCS: 73610; 99281; 99283

== ENCOUNTER → 2023-04-30 11:37 | Outpatient (CLI) | payer MEDICARE, SELFPAY ==
[2023-04-30 12:48] LABS: Alanine Aminotransferase 24 IU/L (<35); Albumin 3.9 g/dL (3.5-5.0); Albumin Globulin Ratio 1.4 (1.0-2.8); Alkaline Phosphatase 202 U/L (38-126); Aspartate Aminotransferase 29 IU/L (14-36); BUN Creatinine Ratio 30.2 (6-22); Bilirubin Total 0.4 mg/dL (0.2-1.3); Blood Urea Nitrogen 16 mg/dL (7-17); Calcium 9.3 mg/dL (8.4-10.2); Carbon Dioxide 27 mmol/L (22-32); Chloride 96 mmol/L (98-107); Estimated Glomerular Filt Rate > 60 mL/min (>60); Globulin 2.7 g/dL (1.7-4.1); Glucose 119 mg/dL (80-110); HEMOLYSIS < 15 (0-50); Potassium 3.9 mmol/L (3.4-5.1); Sodium 132 mmol/L (137-145); Total Protein 6.6 g/dL (6.3-8.2)
[2023-04-30 13:05] LABS: Free T3, Triiodothyronine Free 2.06 pg/mL (2.77-5.27)
[2023-04-30 13:18] LABS: Thyroid Stimulating Hormone 17.4 uIU/mL (0.47-4.68)
[2023-04-30 17:47] LABS: Gamma Glutamyl Transpeptidase 29 U/L (12-43)
== END ==
PROVIDERS: PCP Nurse Practitioner; Referring Provider Family Medicine; Visit Provider Family Medicine
DX: E03.9 Hypothyroidism, unspecified (principal); R74.8 Abnormal levels of other serum enzymes; B35.1 Tinea unguium
CPT/HCPCS: 36415; 80053; 82977; 84439; 84443; 84481

== ENCOUNTER → 2023-05-16 11:42 | Outpatient (CLI) | payer MEDICARE, SELFPAY ==
--- NOTE | 2023-05-16 11:42 | DI.RAD.S_ITS ---
Bone Density Report Name: ALECIA MOLINA Age: 78 Sex: Female Ethnicity: White Date of : 1945 Indication: postmenopausal; screening for osteoporosis; Referring Provider: BLADIMIR MAGUIRE Study: Bone densitometry was performed. Exam Date: May 16, 2023 Accession number: [id number] Bone Density: Region BMD T-score Z-score Classification AP Spine(L1, L2, L3) 0.949 -0.6 1.9 Normal Femoral Neck (Left) 0.500 -3.1 -0.9 Osteoporosis Total Hip (Left) 0.626 -2.6 -0.6 Osteoporosis Femoral Neck (Right) 0.516 -3.0 -0.7 Osteoporosis Total Hip (Right) 0.601 -2.8 -0.8 Osteoporosis Total Hip Mean 0.613 -2.7 -0.7 Osteoporosis World Health Organization criteria for BMD impression classify patients as: Normal (T-score at or above -1.0), Osteopenia (T-score between -1.0 and -2.5), or Osteoporosis (T-score at or below -2.5). 10-year Fracture Risk: FRAX not reported because: Some T-score for Spine Total or Hip Total or Femoral Neck at or below -2.5 Treated for osteoporosis Impression: The patient has osteoporosis, based on the Left Femoral Neck T-score. Discussion: It is important to ask patients whether they are taking their medications and to encourage continued and appropriate compliance with their osteoporosis therapies to reduce fracture risk. It is also important to review their risk factors and encourage appropriate calcium and vitamin D intakes, exercise, fall prevention and other lifestyle measures. Follow-Up: Consider a repeat BMD and Vertebral Fracture Assessment (VFA) exam in 2 years or sooner if medically necessary, to reassess this patient's status. Reported by: LEAH STEINER M.D. on 05/16/2023 12:08:00 PM.
== END ==
PROVIDERS: PCP Nurse Practitioner; Referring Provider Family Medicine; Visit Provider Family Medicine
DX: M81.0 Age-related osteoporosis without current pathological fracture (principal)
CPT/HCPCS: 77080

== ENCOUNTER → 2023-06-09 11:56 | Outpatient (CLI) | payer MEDICARE, SELFPAY ==
[2023-06-09 21:03] LABS: TSH w/ Reflex to FT4 8.38 uIU/mL (0.47-4.68)
[2023-06-09 21:45] LABS: Free T4, Direct Thyroxine 1.71 ng/dL (0.78-2.19)
== END ==
PROVIDERS: PCP Nurse Practitioner; Referring Provider Family Medicine; Visit Provider Family Medicine
DX: E03.9 Hypothyroidism, unspecified (principal)
CPT/HCPCS: 36415; 84439; 84443

== ENCOUNTER → 2023-06-10 | Outpatient (CLI) | payer MEDICARE, SELFPAY ==
--- NOTE | 2023-06-10 | DI.MG.S_ITS ---
BILATERAL DIGITAL SCREENING MAMMOGRAM 3D/2D WITH CAD: 06/10/2023 Comparison is made to exams dated: 06/01/2022 mammogram, 05/26/2021 mammogram, and 05/23/2020 mammogram - [facility]. Both breasts are extremely dense, which lowers the sensitivity of mammography (category d />75% glandular tissue). Current study was also evaluated with a Computer Aided Detection (CAD) system. There are benign calcifications in the right breast. There also are benign post operative findings in the right breast. No significant masses, calcifications, or other findings are seen in either breast. There has been no significant interval change. IMPRESSION: BENIGN There is no mammographic evidence of malignancy. A 1 year screening mammogram is recommended. Based on the Tyrer Cuzick model (a risk assessment model) the patient's lifetime risk is 5.5% and her 10 year risk is 0.0%. According to the ACR, ACS, and NCCN guidelines, an annual breast MRI exam along with mammogram is recommended if the patient's lifetime risk is 20% or greater. This exam was interpreted at Station ID: [id number]. NOTE: For mammograms, a report in lay terms will be sent to the patient. Approximately 15% of breast malignancies will not be visualized mammographically. In the management of a palpable breast mass, a negative mammogram must not discourage biopsy of a clinically suspicious lesion. Electronically Signed By: Kenneth lindsey/milly:06/10/2023 15:43:40 letter sent: Normal Exam ACR BI-RADS Category 2: Benign Finding(s) [id number]
== END ==
LOC: MAMMO 13:54
PROVIDERS: PCP Nurse Practitioner; Referring Provider Nurse Practitioner; Visit Provider Nurse Practitioner
DX: Z12.31 Encounter for screening mammogram for malignant neoplasm of breast (principal)
CPT/HCPCS: 77063; 77067

== ENCOUNTER → 2023-08-18 08:26 | Outpatient (CLI) | payer MEDICARE, SELFPAY ==
[2023-08-18 09:31] LABS: BUN Creatinine Ratio 27.9 (6-22); Blood Urea Nitrogen 17 mg/dL (7-17); Calcium 9.7 mg/dL (8.4-10.2); Carbon Dioxide 28 mmol/L (22-32); Chloride 99 mmol/L (98-107); Estimated Glomerular Filt Rate > 60 mL/min (>60); Glucose 88 mg/dL (80-110); HEMOLYSIS < 15 (0-50); Potassium 4.2 mmol/L (3.4-5.1); Sodium 136 mmol/L (137-145)
[2023-08-18 09:47] LABS: Vitamin D 25 Hydroxy (D3) 78.8 ng/mL (30.0-100.0)
[2023-08-20 06:36] LABS: Parathyroid Hormone Int 23 pg/mL (15-65)
== END ==
PROVIDERS: Physician Assistant; PCP Nurse Practitioner; Referring Provider Nurse Practitioner; Visit Provider Nurse Practitioner
DX: M81.0 Age-related osteoporosis without current pathological fracture (principal); E03.9 Hypothyroidism, unspecified; Z79.899 Other long term (current) drug therapy; R79.89 Other specified abnormal findings of blood chemistry
CPT/HCPCS: 36415; 80048; 82306; 83970; 84443

== ENCOUNTER → 2023-10-15 10:02 | Outpatient (CLI) | payer MEDICARE, SELFPAY ==
[2023-10-15 11:09] LABS: Alanine Aminotransferase 19 IU/L (<35); Albumin 3.8 g/dL (3.5-5.0); Albumin Globulin Ratio 1.4 (1.0-2.8); Alkaline Phosphatase 62 U/L (38-126); Aspartate Aminotransferase 26 IU/L (14-36); BUN Creatinine Ratio 36.8 (6-22); Bilirubin Total 0.3 mg/dL (0.2-1.3); Blood Urea Nitrogen 21 mg/dL (7-17); Calcium 9.1 mg/dL (8.4-10.2); Carbon Dioxide 31 mmol/L (22-32); Chloride 105 mmol/L (98-107); Estimated Glomerular Filt Rate > 60 mL/min (>60); Globulin 2.8 g/dL (1.7-4.1); Glucose 71 mg/dL (80-110); HEMOLYSIS < 15 (0-50); Potassium 4.4 mmol/L (3.4-5.1); Sodium 138 mmol/L (137-145); Total Protein 6.6 g/dL (6.3-8.2)
[2023-10-15 11:32] LABS: Thyroid Stimulating Hormone < 0.015 uIU/mL (0.47-4.68)
[2023-10-15 11:51] LABS: Hep C Virus Ab w/Reflex Quant NEGATIVE s/c (NEGATIVE)
== END ==
PROVIDERS: PCP Nurse Practitioner; Referring Provider Nurse Practitioner; Visit Provider Nurse Practitioner
DX: E03.9 Hypothyroidism, unspecified (principal); R79.89 Other specified abnormal findings of blood chemistry; Z11.59 Encounter for screening for other viral diseases
CPT/HCPCS: 36415; 80053; 84443; 86803

== ENCOUNTER → 2024-01-12 08:37 | Outpatient (CLI) | payer MEDICARE, SELFPAY ==
[2024-01-12 10:17] LABS: TSH w/ Reflex to FT4 < 0.02 uIU/mL (0.47-4.68)
[2024-01-12 10:47] LABS: Free T4, Direct Thyroxine 1.73 ng/dL (0.78-2.19)
== END ==
PROVIDERS: PCP Nurse Practitioner; Referring Provider Nurse Practitioner; Visit Provider Nurse Practitioner
DX: E03.9 Hypothyroidism, unspecified (principal)
CPT/HCPCS: 36415; 84439; 84443

== ENCOUNTER → 2024-03-02 09:40 | Outpatient (CLI) | payer MEDICARE, SELFPAY ==
[2024-03-02 11:16] LABS: Thyroid Stimulating Hormone 0.037 uIU/mL (0.47-4.68)
== END ==
PROVIDERS: PCP Nurse Practitioner; Referring Provider Nurse Practitioner; Visit Provider Nurse Practitioner
DX: E03.9 Hypothyroidism, unspecified (principal)
CPT/HCPCS: 36415; 84443

== ENCOUNTER → 2024-07-02 15:00 | Outpatient (CLI) | payer MEDICARE, SELFPAY ==
[2024-07-02 16:23] LABS: TSH w/ Reflex to FT4 0.02 uIU/mL (0.47-4.68)
[2024-07-02 17:02] LABS: Free T4, Direct Thyroxine 1.79 ng/dL (0.78-2.19)
== END ==
PROVIDERS: PCP Family Medicine; Referring Provider Family Medicine; Visit Provider Family Medicine
DX: E03.9 Hypothyroidism, unspecified (principal)
CPT/HCPCS: 84439; 84443

== ENCOUNTER → 2024-07-16 13:38 | Outpatient (CLI) | payer MEDICARE, SELFPAY | PROVIDERS: PCP Family Medicine; Referring Provider Family Medicine; Visit Provider Family Medicine | DX: E03.9 Hypothyroidism, unspecified (principal) | CPT/HCPCS: 36415; 84481 ==

== ENCOUNTER → 2025-05-13 10:54 | Outpatient (CLI) | payer MEDICARE, SELFPAY ==
[2025-05-13 12:04] LABS: Alanine Aminotransferase 18 IU/L (<35); Albumin 4.3 g/dL (3.5-5.0); Albumin Globulin Ratio 1.7 (1.0-2.8); Alkaline Phosphatase 59 U/L (38-126); Blood Urea Nitrogen 18 mg/dL (7-17); Calcium 9.7 mg/dL (8.4-10.2); Carbon Dioxide 29 mmol/L (22-32); Chloride 100 mmol/L (98-107); Estimated Glomerular Filt Rate > 60 mL/min (>60); Globulin 2.5 g/dL (1.7-4.1); Glucose 91 mg/dL (70-99); HEMOLYSIS < 15 (0-50); Potassium 4.6 mmol/L (3.4-5.1); Sodium 137 mmol/L (137-145); Total Protein 6.8 g/dL (6.3-8.2)
[2025-05-13 12:18] LABS: Free T3, Triiodothyronine Free 3.97 pg/mL (2.77-5.27)
[2025-05-13 12:32] LABS: TSH w/ Reflex to FT4 0.80 uIU/mL (0.47-4.68)
== END ==
PROVIDERS: PCP Family Medicine; Referring Provider Family Medicine; Visit Provider Family Medicine
DX: E03.9 Hypothyroidism, unspecified (principal)
CPT/HCPCS: 36415; 80053; 84443; 84481